=== PATIENT | male | born 1995 | race Caucasian/White ===

== ENCOUNTER 2017-04-21 16:30 | Emergency (ER) | payer OTHER | END 2017-04-21 19:15 | disposition home or self-care (01) | LOC: FTE 16:30 | DX: Z76.0 Encounter for issue of repeat prescription (principal); J45.909 Unspecified asthma, uncomplicated | CPT/HCPCS: 99281; Z7502 ==

== ENCOUNTER 2017-06-12 14:00 | Emergency (ER) | payer OTHER | END 2017-06-12 14:43 | disposition home or self-care (01) | LOC: E/R 14:00 | DX: J45.901 Unspecified asthma with (acute) exacerbation (principal) | CPT/HCPCS: 99284 ==

== ENCOUNTER 2018-03-02 15:19 | Emergency (ER) | payer SELFPAY, OTHER ==
[2018-03-02] MEDS: METHYLPREDNISOLONE 125 MG INJ IV (15:35)
[2018-03-02] MEDS: IPRATROPIUM (NEB) 0.5 MG/2.5 ML AMP HHN ×2 (15:47→16:31)
[2018-03-02] MEDS: ALBUTEROL 0.083% (NEB) 2.5 MG/3 ML AMP HHN ×2 (15:48→16:30)
== END 2018-03-02 16:59 | disposition home or self-care (01) ==
LOC: FTE 15:19
DX: J45.901 Unspecified asthma with (acute) exacerbation (principal)
CPT/HCPCS: 94640; 94664; 96374; 99285-25